=== PATIENT | female | born 1985 | race Caucasian/White ===

== ENCOUNTER 2021-07-10 00:03 | Inpatient (IN) | payer BC ==
--- NOTE | 2021-07-10 10:57 | PR ---
[facility] [address] [facility] [place], [place] [address] Signed Progress Notes IP Datetime Report Generated by CPToni: 07/10/2021 10:57 PROGRESS NOTES: [id number] Impression: Normal Progression of Labor Procedures: Artificial ROM; Sterile Vag Exam Plan: Continue Present Management VITAL SIGNS: [id number] Vital Signs: Reviewed; Within Normal Limits EXAM: [id number] Dilatation: 1.0 Effacement: 50 Station: -2 Contractions: irregular MEMBRANES: [id number] Comments: Progressing. Will continue. FETUS A: [id number] FHR Baseline: 130 Variability: Moderate 6-25bpm Accelerations: 10X10 Decelerations: None FHR Category: Category I Presentation: Vertex Comments on Fetus A: No evidence of metabolic acidosis FETUS B: [id number] Signing Physician: Sharona Diop MD Copies: ~ *Electronically Signed* 07/10/21 1057 SHARONA DIOP MD PATIENT NAME: MIGUEL ANGEL PATEL PROGRESS NOTE DATE OF : 83 PHYSICIAN: SHARONA DIOP MD RPT #: [id number] REPORT IS CONFIDENTIAL AND NOT TO BE RELEASED WITHOUT AUTHORIZATION
--- NOTE | 2021-07-10 18:25 | PR ---
[facility] [address] [facility] [place] [address] Signed Progress Notes IP Datetime Report Generated by AUTUMN: 07/10/2021 18:25 PROGRESS NOTES: [id number] Impression: Normal Progression of Labor Procedures: Scalp Electrode; Sterile Vag Exam Plan: Continue Present Management Other Plans: position changes VITAL SIGNS: [id number] Vital Signs: Reviewed; Within Normal Limits EXAM: [id number] Dilatation: 9.0 Effacement: 90 Station: -2 Contractions: irregular MEMBRANES: [id number] Comments: Comfortable after epidural and progressing well. Will continue close observation. FETUS A: [id number] FHR Baseline: 130 Variability: Moderate 6-25bpm Accelerations: 10X10 Decelerations: None FHR Category: Category I Presentation: Vertex Comments on Fetus A: No evidence of metabolic acidosis FETUS B: [id number] Signing Physician: Brian Diop MD Copies: ~ *Electronically Signed* 07/10/21 1825 BRIAN DIOP MD PATIENT NAME: PACO PATELCARIE Arteaga PROGRESS NOTE DATE OF : 83 PHYSICIAN: BRIAN DIOP MD RPT #: [id number] REPORT IS CONFIDENTIAL AND NOT TO BE RELEASED WITHOUT AUTHORIZATION
--- NOTE | 2021-07-12 10:29 | PR ---
[facility] [address] [facility] [place], [place] [address] Signed PP Progress Notes Datetime Report Generated by CPN: 07/12/2021 10:29 SUBJECTIVE: [id number] Pain: Within Normal Limits Vital Signs: [id number] Vital Signs: Reviewed; Within Normal Limits EXAM: Ongoing Cardiovascular: Not Done Respiratory: Not Done Abdomen/Uterus: Abnormal Lochia: Normal Vulva/Perineum: Normal Breasts: Not Done CVA Tenderness: Not Done Extremities: Normal Incision: Not Applicable Progress: Normal Exam Comments: Fundus firm, NT @ U-2. Perineum with minimal swelling and appears intact. H/H 12.6/38.5, WBC 12.4, plat 212k IMPRESSION/PLAN/PROCEDURES: [id number] Impression: Normal Progression Plan: Discharge Procedures: None Progress Notes: Doing well. She desires discharge. Signing Physician: Sharona Diop MD Copies: ~ *Electronically Signed* 07/12/21 1029 SHARONA DIOP MD PATIENT NAME: MIGUEL ANGEL PATEL PROGRESS NOTE DATE OF : 83 PHYSICIAN: SHARONA DIOP MD RPT #: [id number] REPORT IS CONFIDENTIAL AND NOT TO BE RELEASED WITHOUT AUTHORIZATION
== END 2021-07-12 12:05 | disposition home or self-care (01) | DRG 807 ==
LOC: FBC 00:03
PROVIDERS: ADMIT Obstetrics & Gynecology; ATTEND Obstetrics & Gynecology
PROC: 10E0XZZ Delivery of Products of Conception, External Approach (ICD-10-PCS; principal; 2021-07-10)
PROC: 0KQM0ZZ Repair Perineum Muscle, Open Approach (ICD-10-PCS; 2021-07-10)
PROC: 10907ZC Drainage of Amniotic Fluid, Therapeutic from Products of Conception, Via Natural or Artificial Opening (ICD-10-PCS; 2021-07-10)
PROC: 3E0P7VZ Introduction of Hormone into Female Reproductive, Via Natural or Artificial Opening (ICD-10-PCS; 2021-07-10)
DX: O48.0 Post-term pregnancy (principal); Z37.0 Single live birth; Z3A.40 40 weeks gestation of pregnancy; O70.1 Second degree perineal laceration during delivery; Z67.30 Type AB blood, Rh positive
CPT/HCPCS: 36415; 85027; 86850; 86900; 86901; 87502; A9270; J2590; J2795; J3010; J7121; U0003

== ENCOUNTER 2023-08-18 09:27 | Inpatient (IN) | payer BC ==
[~2023-08-18] VITALS: Ht 160 cm; Wt 52.2 kg
--- NOTE | ~2023-08-18 | OR ---
[facility] [address] [place], [place] [address] Draft DATE OF OPERATION: 08/19/2023 SURGEON: Sharona Diop MD GLASS FURNACE TENDER: Reyna. PREOPERATIVE DIAGNOSES: Term , active labor, patient request for . POSTOPERATIVE DIAGNOSES: Term , active labor, patient request for . PROCEDURE: Primary section with low segment transverse uterine incision. ANESTHESIA: Spinal. ESTIMATED BLOOD LOSS: 850 mL. DRAINS: Choe catheter. INDICATIONS AND FINDINGS: The patient is a 37-year-old female 2, para 1, who was admitted in active labor and progressed rapidly to complete. However, after reaching complete and pushing for an hour, she absolutely refused to push any further and demanded a primary section. status throughout this time had been fine and reassuring. Because of this demand, preparations were made for primary section. She was taken to the operating room where she was delivered of a little girl via lower segment transverse uterine incision from the ROP position with Apgars of 9 and 9 and weight of 8 pounds 2 ounces. The uterus, tubes, ovaries, and placenta appeared normal. DESCRIPTION OF PROCEDURE: The patient was prepped and draped in the supine position. A Pfannenstiel skin incision was made, carried down through the fascia and the incision extended laterally. The inferior and superior fascial flaps were then created. The muscles were bluntly divided and the peritoneum opened bluntly. The incision was extended bluntly. The Ismael PATIENT NAME: MIGUEL ANGEL PATEL RECORD #: [id number] OPERATIVE REPORT DATE OF : 83 REPORT #: [id number] PHYSICIAN: SHARONA DIOP MD PCP: NO PRIMARY CARE PHYSICIAN REPORT IS CONFIDENTIAL AND NOT TO BE RELEASED WITHOUT AUTHORIZATION [facility] [address] [place], [place] [address] Draft retractor was then placed. The uterine incision was made at the upper aspect of the peritoneal reflection and the incision extended bluntly. The baby was delivered with above findings and handed out to the pediatric staff in attendance. Following this, the placenta was expressed and the uterus explored with a lap tape assuring no remaining fragments. The left uterine vessel was lacerated and was grasped with T-clamps. The edges of the incision were otherwise identified with T-clamps. The uterus was closed in 2 layers using 0 Monocryl. Care was taken to completely control bleeding from the left angle. The first layer was a running locking stitch and the second was a vertical imbricating stitch. The abdomen was then irrigated, inspected and good hemostasis was noted. The Ismael retractor was removed and the peritoneum identified. The peritoneum was closed with a running suture of 3-0 Vicryl. The muscles were brought together with interrupted sutures of 0 Vicryl. This layer was irrigated, inspected and bleeding points controlled with cautery. Hansa was used to help further assure hemostasis. The fascia was closed from each angle to the midline with running suture of 0 Vicryl. The subcu was reapproximated with 3-0 Vicryl after controlling any bleeding points. The skin was closed with radha. All sponge and needle counts were correct. She tolerated this well, was taken to the recovery room in good condition. Sharona Diop MD PJW/MODL /[id number] Copies: ~ PATIENT NAME: MIGUEL ANGEL PATEL OPERATIVE REPORT DATE OF : 83 REPORT #: [id number] PHYSICIAN: SHARONA DIOP MD PCP: NO PRIMARY CARE PHYSICIAN REPORT IS CONFIDENTIAL AND NOT TO BE RELEASED WITHOUT AUTHORIZATION
[2023-08-19 03:06] VITALS: BP 120/70
[2023-08-19] MEDS ORDERED: OXYTOCIN/DEXTROSE 5% 20 UNITS/100 ML BAG IV SCH (03:15)
[2023-08-19] MEDS ORDERED: CALCIUM CARBONATE 500 MG CHEW PO PRN (03:15)
[2023-08-19] MEDS ORDERED: MAGNESIUM HYDROXIDE/AL HYDROX 30 ML CUP PO PRN (03:15)
[2023-08-19] MEDS ORDERED: LACTATED RINGER'S 1,000 ML IV PRN (03:15)
[2023-08-19 03:25] LABS: HEMATOCRIT 38.2 % (35.0-50.0); MCH 33.4 (27-36); MCHC 33.9 g/dl (30-36); MCV 98.4 fl (81-99); RBC 3.88 M/ul (4.3-5.7); RDW 13.3 (10.5-15.0)
[2023-08-19 03:34] LABS: AMPHETAMINES, URINE NEGATIVE (NEGATIVE); BARBITURATES, URINE NEGATIVE (NEGATIVE); BENZODIAZEPINE, URINE NEGATIVE (NEGATIVE); BUPRENORPHINE, URINE NEGATIVE (NEGATIVE); CANNABINOID, URINE NEGATIVE (NEGATIVE); COCAINE, URINE NEGATIVE (NEGATIVE); ECSTASY, URINE NEGATIVE (NEGATIVE); FENTANYL, URINE NEGATIVE (NEGATIVE); METHADONE, URINE NEGATIVE (NEGATIVE); OPIATES, URINE NEGATIVE (NEGATIVE); OXYCODONE, URINE NEGATIVE (NEGATIVE); PHENCYCLIDINE, URINE NEGATIVE (NEGATIVE)
[2023-08-19 03:57] LABS: ABO AB
[2023-08-19 03:58] LABS: ANTIBODY SCREEN NEGATIVE; RH POSITIVE
[2023-08-19] MEDS ORDERED: BUPIVACAINE HCL 0.25% 10 ML SDV INJ ONE (04:54)
[2023-08-19] MEDS ORDERED: NALOXONE HCL 0.4 MG SYR IV PRN ×2 (05:15→08:45)
--- NOTE | 2023-08-19 05:47 | PR ---
[facility] [address] [facility] [place], [place] [address] Signed Progress Notes IP Datetime Report Generated by CPN: 08/19/2023 05:47 PROGRESS NOTES: [id number] Impression: Normal Progression of Labor Procedures: Artificial ROM; Sterile Vag Exam Plan: Continue Present Management VITAL SIGNS: [id number] Vital Signs: Reviewed; Within Normal Limits EXAM: [id number] Dilatation: 9.0 Effacement: 90 Station: 0 Contractions: q 2 min MEMBRANES: [id number] Comments: Comfortable after epidural. Progressing well. Will continue. FETUS A: [id number] FHR Baseline: 155 Variability: Moderate 6-25bpm Accelerations: 15X15 Decelerations: None FHR Category: Category I Presentation: Vertex Comments on Fetus A: No evidence of metabolic acidosis FETUS B: [id number] Signing Physician: Sharona Diop MD Copies: ~ *Electronically Signed* 08/19/23 0547 SHARONA DIOP MD PATIENT NAME: MIGUEL ANGEL PATEL PROGRESS NOTE DATE OF : 83 PHYSICIAN: SHARONA DIOP MD RPT #: [id number] REPORT IS CONFIDENTIAL AND NOT TO BE RELEASED WITHOUT AUTHORIZATION
--- NOTE | 2023-08-19 06:05 | PR ---
[facility] [address] [facility] [place], [place] [address] Signed Progress Notes IP Datetime Report Generated by CPN: 08/19/2023 06:05 PROGRESS NOTES: [id number] Impression: Normal Progression of Labor Procedures: Sterile Vag Exam Plan: Continue Present Management VITAL SIGNS: [id number] Vital Signs: Reviewed; Within Normal Limits EXAM: [id number] Dilatation: 10.0 Effacement: 90 Station: 0 Contractions: q 2 min MEMBRANES: [id number] Comments: Feeling some pressure. Will begin pushing. FETUS A: [id number] FHR Baseline: 155 Variability: Moderate 6-25bpm Accelerations: 15X15 Decelerations: Variable FHR Category: Category II Presentation: Vertex Comments on Fetus A: No evidence of metabolic acidosis FETUS B: [id number] Signing Physician: Sharona Diop MD Copies: ~ *Electronically Signed* 08/19/23 0605 SHARONA DIOP MD PATIENT NAME: MIGUEL ANGEL PATEL PROGRESS NOTE DATE OF : 83 PHYSICIAN: SHARONA DIOP MD RPT #: [id number] REPORT IS CONFIDENTIAL AND NOT TO BE RELEASED WITHOUT AUTHORIZATION
[2023-08-19] MEDS ORDERED: AZITHROMYCIN/DEXTROSE 500 MG/250 ML BAG ONE (07:27)
[2023-08-19] MEDS ORDERED: CEFAZOLIN SODIUM 2 GM/20 ML SYR ONE (07:27)
[2023-08-19] MEDS ORDERED: OXYTOCIN 10 UNITS/ML VIAL ONE ×3 (07:43→08:34)
[2023-08-19] MEDS ORDERED: LIDOCAINE HCL 2% 5 ML SDV ONE (07:43)
[2023-08-19] MEDS ORDERED: BUPIVACAINE 0.75% IN DEXTROSE 2 ML AMP ONE (07:43)
[2023-08-19] MEDS ORDERED: fentaNYL citrate 100 MCG/2 ML VIAL ONE (07:43)
[2023-08-19] MEDS ORDERED: ondansetron HCL 4 MG/2 ML VIAL ONE (07:43)
[2023-08-19] MEDS ORDERED: MORPHINE SULFATE 1 MG/ML VIAL ONE (07:43)
[2023-08-19] MEDS ORDERED: PHENYLEPHRINE HCL 10 MG/ML VIAL ONE (08:05)
[2023-08-19] MEDS ORDERED: LACTATED RINGER'S 1,000 ML IV ONE ×2 (08:06→08:34)
[2023-08-19] MEDS ORDERED: DEXAMETHASONE SOD PHOS 4 MG/ML VIAL ONE ×2 (08:17)
[2023-08-19] MEDS ORDERED: METOCLOPRAMIDE HCL 10 MG/2 ML SDV ONE (08:17)
[2023-08-19] MEDS ORDERED: dexmedeTOMIDine HCl 200 MCG/2 ML VIAL ONE (08:24)
[2023-08-19] MEDS ORDERED: Ropivacaine HCl 0.5% 30 ML VIAL ONE (08:39)
[2023-08-19] MEDS ORDERED: SODIUM CHLORIDE 0.9% 20 ML IV ONE (08:39)
[2023-08-19] MEDS ORDERED: KETOROLAC TROMETHAMINE 30 MG/ML VIAL IV PRN (08:45)
[2023-08-19] MEDS ORDERED: ondansetron HCL 4 MG/2 ML VIAL IV PRN (08:45)
[2023-08-19] MEDS ORDERED: diphenhydrAMINE HCL 50 MG/ML VIAL IV PRN (08:45)
[2023-08-19] MEDS ORDERED: HYDROmorphone HCL 1 MG/ML SYR IV PRN (08:45)
[2023-08-19] MEDS ORDERED: PROCHLORPERAZINE EDISYLATE 10 MG/2 ML VIAL IV PRN (08:45)
[2023-08-19] MEDS ORDERED: PROMETHAZINE HCL 25 MG SUPP PR PRN (09:00)
[2023-08-19] MEDS ORDERED: METOCLOPRAMIDE HCL 10 MG/2 ML SDV IV PRN (09:00)
[2023-08-19] MEDS ORDERED: OXYTOCIN/0.9 % SODIUM CHLORIDE 500 ML IV SCH (09:00)
[2023-08-19] MEDS ORDERED: PROMETHAZINE HCL 25 MG TAB PO PRN (09:00)
[2023-08-19] MEDS ORDERED: OXYCODONE HCL 5 MG TAB PO PRN (09:00)
[2023-08-19] MEDS ORDERED: SENNOSIDES/DOCUSATE 1 EA TAB PO SCH (09:00)
[2023-08-19] MEDS ORDERED: LIDOCAINE 2% VISCOUS 6 ML SYR TOP ONE (09:00)
[2023-08-19] MEDS ORDERED: bisacodyL 10 MG SUPP PR PRN (09:00)
[2023-08-19] MEDS ORDERED: LACTATED RINGER'S 1,000 ML IV SCH (09:01)
[2023-08-19] MEDS ORDERED: ePHEDrine KIT FOR FBC IV ONE (09:54)
[2023-08-19] MEDS ORDERED: ePHEDrine sulfate 50 MG/ML AMP IV ONE (10:00)
[2023-08-19] MEDS ORDERED: ACETAMINOPHEN 500 MG TAB PO SCH ×2 (10:00→14:00)
[2023-08-19 10:11] VITALS: BP 96/52
[2023-08-19] MEDS ORDERED: ePHEDrine sulfate 5 MG/ML SYRINGE IV ONE (10:15)
--- NOTE | 2023-08-19 10:20 | NUR ---
08/19/23 Lisa Llamas 0905- PT PRESENTS TO ROOM 102 IN [facility], SUPINE POSITION. DROWSY BUT WAKES EASILY TO VERBAL STIMULUS, DENIES PAIN AND NAUSEA. ALL MONITORS PLACED. ABD SOFT, NON DISTENDED. CHAN CATHETER DRAINING CLEAR BUT CONCENTRATED URINE. WARM BLANKETS PROVIDED. HOLDING BABY. LR WITH 20 UNITS OF PITOCIN INFUSING TO LFA 18 G IV, DRESSING CDI. FUNDUS FIRM AT UMBILICUS, NO BLEEDING ON MASSAGE. PT HAS NO COMPLAINTS OTHER THAN FEELING TIRED. WILL CONTINUE TO MONITOR. 0913- HEAD OF BED ELEVATED SLIGHTLY, BABY TO BREAST WITH ASSISTANCE BY NICOLETTE FONTENOT. PT TOLERATING WELL. 0915- BP DROPPED TO 83/54, PT REMAINS DROWSY BUT AWAKE. NO SIGNS OF DISTRESS. DENIES DIZZINESS OR NAUSEA. FUNDAL CHECK DONE, NO BLEEDING AND UTERUS FIRM. NOTIFED NOT SIT UP ANY FURTHER, 50 MCG NEOSYNEPHRINE GIVEN IV. 0925- BP CAME UP SLIGHTLY AND THEN BACK INTO 80'S, MEDICATED WITH ANOTHER 50 MCG OF NEOSYNEPHRINE AT THIS TIME. LR WITH 20 UNITS OF PITOCIN COMPLETED AT THIS TIME. MAINTENANCE FLUIDS STARTED BY NICOLETTE FONTENOT. 0930- BP HAS IMPROVED TO UPPER 90'S. PT RESTING AT THIS TIME. WAKES EASILY TO STIMULUS. NO SIGNS OF DISTRESS. 0935- PT CONTINUES TO REST, REPORT TO NICOLETTE FONTENOT AT BEDSIDE. IV FLUIDS INFUSING, BED PLUGGED IN. NO SIGNS OF DISTRESS. CARE OF PT TURNED OVER AT THIS TIME.
[2023-08-19] MEDS ORDERED: SIMETHICONE 125 MG TABLET CHEWABLE PO SCH (11:00)
[2023-08-19] MEDS ORDERED: KETOROLAC TROMETHAMINE 30 MG/ML VIAL IV SCH (14:00)
[2023-08-20 05:18] LABS: HEMATOCRIT 27.9 % (35.0-50.0); HEMOGLOBIN 9.6 g/dL (12.0-18.0); MCH 33.9 (27-36); MCHC 34.3 g/dl (30-36); MCV 98.8 fl (81-99); RBC 2.83 M/ul (4.3-5.7); RDW 13.2 (10.5-15.0)
[2023-08-20] MEDS ORDERED: PROCHLORPERAZINE EDISYLATE 10 MG/2 ML VIAL IV PRN (08:45)
[2023-08-20] MEDS ORDERED: ondansetron HCL 4 MG/2 ML VIAL IV PRN (08:45)
--- NOTE | 2023-08-20 08:57 | PR ---
[facility] [address] [place], [place] [address] Signed PP Progress Notes Datetime Report Generated by AUTUMN: 08/20/2023 08:57 SUBJECTIVE: [id number] Pain: Within Normal Limits Nausea/Vomiting: Denies Flatus: Yes Vital Signs: [id number] Vital Signs: Reviewed; Within Normal Limits Cardiovascular: Normal Respiratory: Normal Abdomen/Uterus: Abnormal Lochia: Normal Vulva/Perineum: Not Done Breasts: Not Done CVA Tenderness: Not Done Extremities: Normal Incision: Normal Progress: Normal Exam Comments: Abdomen with active BS. Fundus firm, NT @ U-2. H/H 9.6/27.9, WBC 9.1, plat 217k IMPRESSION/PLAN/PROCEDURES: [id number] Impression: Normal Progression Other Impression: anxiety Other Plans: ambulate, shower, start sertraline Progress Notes: Physically, she is doing well. I discussed her anxiety which I feel is significant and problematic. I do feel she would benefit from starting medication for her anxiety. She also has a hx of pp depression. After discussion, she is willing to try medication though she expressed multiple concerns. It is also necessary for her to ambulate w/ possible shower today. Signing Physician: Sharona Diop MD Copies: ~ *Electronically Signed* 08/20/23 0857 SHARONA DIOP MD PATIENT NAME: MIGUEL ANGEL PATEL PROGRESS NOTE DATE OF : 83 PHYSICIAN: SHARONA DIOP MD RPT #: [id number] REPORT IS CONFIDENTIAL AND NOT TO BE RELEASED WITHOUT AUTHORIZATION
[2023-08-20] MEDS ORDERED: SERTRALINE HCL 50 MG TAB PO SCH (09:00)
[2023-08-20] MEDS ORDERED: IBUPROFEN 800 MG TAB PO SCH (14:00)
--- NOTE | 2023-08-21 11:19 | PR ---
[facility] [address] [place], [place] [address] Signed PP Progress Notes Datetime Report Generated by CPN: 08/21/2023 11:19 SUBJECTIVE: [id number] Pain: Within Normal Limits Nausea/Vomiting: Denies Flatus: Yes Bowel Movement: Yes Vital Signs: [id number] Vital Signs: Reviewed; Within Normal Limits Cardiovascular: Not Done Respiratory: Normal Abdomen/Uterus: Abnormal Lochia: Normal Vulva/Perineum: Not Done Breasts: Not Done CVA Tenderness: Not Done Extremities: Normal Incision: Normal Progress: Normal Exam Comments: Abdomen with active BS. Fundus firm, NT @ U-2. IMPRESSION/PLAN/PROCEDURES: [id number] Impression: Normal Progression Other Impression: Diarrhea overnight Plan: Remove Mcintosh; Discharge Other Plans: ambulate, shower, start sertraline Procedures: None Progress Notes: Had diarrhea overnight and refused sertraline this am. She feels she can manage her anxiety w/o sertraline at this time and wants to wait until she has healed from surgery. She is interested in counseling. She is otherwise OK for discharge though I have my reservations about her untreated anxiety. Signing Physician: Sharona Diop MD Copies: ~ *Electronically Signed* 08/21/23 1119 SHARONA DIOP MD PATIENT NAME: MIGUEL ANGEL PATEL PROGRESS NOTE DATE OF : 83 PHYSICIAN: SHARONA DIOP MD RPT #: [id number] REPORT IS CONFIDENTIAL AND NOT TO BE RELEASED WITHOUT AUTHORIZATION
--- NOTE | 2023-08-21 17:43 | PR ---
[facility] [address] [place], [place] [address] Signed PP Progress Notes Datetime Report Generated by CPToni: 08/21/2023 17:43 SUBJECTIVE: [id number] Pain: Within Normal Limits Nausea/Vomiting: Denies Flatus: Yes Bowel Movement: Yes Vital Signs: [id number] Vital Signs: Reviewed; Within Normal Limits Cardiovascular: Not Done Respiratory: Not Done Abdomen/Uterus: Not Done Lochia: Not Done Vulva/Perineum: Not Done Breasts: Not Done CVA Tenderness: Not Done Extremities: Not Done Incision: Not Applicable Progress: Not Applicable Exam Comments: Abdomen with active BS. Fundus firm, NT @ U-2. IMPRESSION/PLAN/PROCEDURES: [id number] Impression: Normal Progression Other Impression: Diarrhea overnight Plan: Remove Joaquim; Discharge Other Plans: ambulate, shower, start sertraline Procedures: None Progress Notes: Pt refuses discharge today as she does not feel "strong". She has not held the baby while she has been up and has not changed the baby. Discussed with her that she is perfectly capable of doing all of these things. D/C can be delayed but it is her worry and anxiety which is holding her back. Tonight she is encouraged to care for the baby completely. Signing Physician: Sharona Diop MD Copies: ~ *Electronically Signed* 08/21/23 1743 SHARONA DIOP MD PATIENT NAME: MIGUEL ANGEL PATEL PROGRESS NOTE DATE OF : 83 PHYSICIAN: SHARONA DIOP MD RPT #: [id number] REPORT IS CONFIDENTIAL AND NOT TO BE RELEASED WITHOUT AUTHORIZATION
--- NOTE | 2023-08-22 08:49 | PR ---
[facility] [address] [facility] [place], [place] [address] Signed PP Progress Notes Datetime Report Generated by CPN: 08/22/2023 08:49 SUBJECTIVE: [id number] Pain: Within Normal Limits Nausea/Vomiting: Denies Flatus: Yes Bowel Movement: Yes Vital Signs: [id number] Vital Signs: Reviewed; Within Normal Limits Cardiovascular: Not Done Respiratory: Not Done Abdomen/Uterus: Abnormal Lochia: Normal Vulva/Perineum: Not Done Breasts: Not Done CVA Tenderness: Not Done Extremities: Normal Incision: Normal Progress: Normal Exam Comments: Fundus firm, NT @ U-2. Incision clean and intact. IMPRESSION/PLAN/PROCEDURES: [id number] Impression: Normal Progression Other Impression: Diarrhea overnight Plan: Remove Joaquim; Discharge Other Plans: ambulate, shower, start sertraline Procedures: None Progress Notes: Doing better. She has been tolerating ambulation. She cared for the baby overnight. She feels ready for D/C. Signing Physician: Sharona Diop MD Copies: ~ *Electronically Signed* 08/22/23 0849 SHARONA DIOP MD PATIENT NAME: MIGUEL ANGEL PATEL PROGRESS NOTE DATE OF : 83 PHYSICIAN: SHARONA DIOP MD RPT #: [id number] REPORT IS CONFIDENTIAL AND NOT TO BE RELEASED WITHOUT AUTHORIZATION
== END 2023-08-22 12:45 | disposition home or self-care (01) | DRG 788 ==
LOC: FBC 08-19 02:21 → MS 08-20 13:43 → FBC 08-20 14:00
PROVIDERS: ADMIT Obstetrics & Gynecology; ATTEND Obstetrics & Gynecology
PROC: 10D00Z1 Extraction of Products of Conception, Low, Open Approach (ICD-10-PCS; principal; 2023-08-19 07:30)
DX: O69.81X0 Labor and delivery complicated by cord around neck, without compression, not applicable or unspecified (principal); Z3A.39 39 weeks gestation of pregnancy; Z37.0 Single live birth; O99.345 Other mental disorders complicating the puerperium; F41.9 Anxiety disorder, unspecified; R19.7 Diarrhea, unspecified
CPT/HCPCS: 01961; 36415; 76942; 80307; 85027; 86850; 86900; 86901; A9270; J0456; J0690; J1100; J1885; J2001; J2274; J2371; J2405; J2590; J2765; J2795; J3010; J7121